=== PATIENT | male | born 1950 | race Caucasian/White ===

== ENCOUNTER 2017-01-24 10:39 | Emergency (ER) | payer OTHER ==
[~2017-01-24] VITALS: Ht 182.9 cm; Wt 96.0 kg
[~2017-01-24 10:39] MED LIST: ATEN-100 PO; CO Q100C PO; CYCL-36 PO; LISI-360 PO; NAPR250T57 PO; SIMV10TA PO; TRAM100T19 PO
[2017-01-24 10:45] VITALS: BP 135/89; PULSE 59; RESP 18; TEMP 98.2; O2SAT 94
--- NOTE | 2017-01-24 10:51 | PD ---
HPI Chief Complaint: Chest Pain Time Seen by Provider: 10:48 Travel History International Travel<30 days: No Contact w/Intl Traveler<30days: No Traveled to known affect area: No History of Present Illness HPI 66-year-old male with history of CAD status post stenting, HI, anxiety, pancreatitis, previous alcohol use, presents to the ER today brought in by EMS sent in by the [facility] because he started having chest tightness which was rated 8 out of 10 and shortness of breath at the [facility] office, was given aspirin and nitroglycerin with chest pain relief, currently having no chest pains. He denies any nausea, vomiting, or any other symptoms. He states that he has been having some problems with his pancreas, but states he has stopped taking alcohol for the last week. He states he has been fairly stressed out because his is trying to get a new job and they have a 2-year-old. Modifying Factors: None Associated Signs & Symptoms: Left-sided chest pain Risk Factors: Cardiac history PFSH Past Medical History Cardiovascular Problems: Yes Diabetes: No Diminished Hearing: No Past Surgical History Tonsillectomy: Yes Social History Alcohol Use: No Tobacco Use: No Substance Use: No Allergies-Medications (Allergen,Severity, Reaction): Coded Allergies: HMG-CoA Reductase Inhibitors (Verified Adverse Reaction, Mild, CRAMPS, ) Reported Meds & Prescriptions Reported Meds & Active Scripts Active Reported Lisinopril 10 Mg Tab 10 Mg PO DAILY Atenolol 25 Mg Tab 10 Mg PO DAILY Co Q-10 (Coenzyme Q10 (Ubidecarenone)) 100 Mg Cap 1 Mg PO DAILY Simvastatin 10 Mg Tab 1 Tab PO DAILY Naprosyn (Naproxen) 250 Mg Tab 250 Mg PO BID Flexeril (Cyclobenzaprine HCl) 10 Mg Tab 10 Mg PO BID Tramadol HCl ER (Tramadol HCl) 100 Mg Tab 50 Mg PO TID Review of Systems Except as stated in HPI: all other systems reviewed are Neg Physical Exam Narrative GENERAL: Well-developed elderly white male patient who appears mildly anxious, in moderate distress. Awake and oriented 3. SKIN: Focused skin assessment warm/diaphoretic. HEAD: Atraumatic. Normocephalic. EYES: Pupils equal and round. No scleral icterus. No injection or drainage. ENT: No nasal bleeding or discharge. Mucous membranes pink and moist. NECK: Trachea midline. No JVD. CARDIOVASCULAR: Regular rate and rhythm. No murmur appreciated. RESPIRATORY: No accessory muscle use. Clear to auscultation. Breath sounds equal bilaterally. GASTROINTESTINAL: Abdomen soft, non-tender, nondistended. Hepatic and splenic margins not palpable. MUSCULOSKELETAL: No obvious deformities. No clubbing. No cyanosis. No edema. NEUROLOGICAL: Awake and alert. No obvious cranial nerve deficits. Motor grossly within normal limits. Normal speech. PSYCHIATRIC: Appropriate mood and affect; insight and judgment normal. Data Data Last Documented VS Vital Signs Date Time Temp Pulse Resp B/P Pulse Ox O2 Delivery O2 Flow Rate FiO2 01/24/17 12:13 66 98 01/24/17 11:11 18 121/71 01/24/17 11:08 Nasal Cannula 2 01/24/17 10:45 98.2 Orders Electrocardiogram (01/24/17 10:48) Ckmb (Isoenzyme) Profile (01/24/17 10:48) Complete Blood Count With Diff (01/24/17 10:48) Comprehensive Metabolic Panel (01/24/17 10:48) Magnesium (Mg) (01/24/17 10:48) Prothrombin Time / Inr (Pt) (01/24/17 10:48) Act Partial Throm Time (Ptt) (01/24/17 10:48) Troponin I (01/24/17 10:48) Lipase (01/24/17 10:48) Chest, Single Ap (01/24/17 10:48) Ecg Monitoring (01/24/17 10:48) Bilateral Bp Monitoring (01/24/17 10:48) Iv Access Insert/Monitor (01/24/17 10:48) Oximetry (01/24/17 10:48) Oxygen Administration (01/24/17 10:48) Sodium Chloride 0.9% Flush (Ns Flush) (01/24/17 11:00) CKMB (01/24/17 11:00) CKMB% (01/24/17 11:00) Labs Laboratory Tests Test 01/24/17 11:00 White Blood Count 5.6 TH/MM3 Red Blood Count 4.39 MIL/MM3 Hemoglobin 14.1 GM/DL Hematocrit 40.2 % Mean Corpuscular Volume 91.6 FL Mean Corpuscular Hemoglobin 32.0 PG Mean Corpuscular Hemoglobin 34.9 % Concent Red Cell Distribution Width 14.9 % Platelet Count 239 TH/MM3 Mean Platelet Volume 9.4 FL Neutrophils (%) (Auto) 40.7 % Lymphocytes (%) (Auto) 34.1 % Monocytes (%) (Auto) 19.1 % Eosinophils (%) (Auto) 5.4 % Basophils (%) (Auto) 0.7 % Neutrophils # (Auto) 2.3 TH/MM3 Lymphocytes # (Auto) 1.9 TH/MM3 Monocytes # (Auto) 1.1 TH/MM3 Eosinophils # (Auto) 0.3 TH/MM3 Basophils # (Auto) 0.0 TH/MM3 CBC Comment DIFF FINAL Differential Comment Prothrombin Time 11.2 SEC Prothromb Time International 1.0 RATIO Ratio Activated Partial 29.4 SEC Thromboplast Time Sodium Level 138 MEQ/L Potassium Level 3.9 MEQ/L Chloride Level 101 MEQ/L Carbon Dioxide Level 28.8 MEQ/L Anion Gap 8 MEQ/L Blood Urea Nitrogen 22 MG/DL Creatinine 0.88 MG/DL Estimat Glomerular Filtration 87 ML/MIN Rate Random Glucose 95 MG/DL Calcium Level 9.7 MG/DL Magnesium Level 2.1 MG/DL Total Bilirubin 0.4 MG/DL Aspartate Amino Transf 47 U/L (AST/SGOT) Alanine Aminotransferase 56 U/L (ALT/SGPT) Alkaline Phosphatase 101 U/L Total Creatine Kinase 299 U/L Creatine Kinase MB 6.1 NG/ML Troponin I LESS THAN 0.02 NG/ML Total Protein 7.7 GM/DL Albumin 3.5 GM/DL Lipase 310 U/L MDM Medical Decision Making Medical Screen Exam Complete: Yes Emergency Medical Condition: Yes Medical Record Reviewed: Yes Interpretation(s) EKG shows sinus bradycardia rate of 58 bpm, no ST elevation or depression, and no arrhythmias. No significant T-wave inversions. Laboratory Tests Test 01/24/17 11:00 Red Blood Count 4.39 MIL/MM3 (4.50-5.90) Monocytes (%) (Auto) 19.1 % (0.0-8.0) Eosinophils (%) (Auto) 5.4 % (0.0-4.0) Monocytes # (Auto) 1.1 TH/MM3 (0-0.9) Blood Urea Nitrogen 22 MG/DL (7-18) Estimat Glomerular Filtration 87 ML/MIN (>89) Rate Aspartate Amino Transf 47 U/L (15-37) (AST/SGOT) Troponin I LESS THAN 0.02 NG/ML (0.02-0.05) Last 24 hours Impressions Chest X-Ray 01/24/17 1048 Signed Impressions: Service Date/Time: Tuesday, January 24, 2017 10:55 - CONCLUSION: No acute disease. Caleb Bains MD Differential Diagnosis Chest painunstable angina versus ACS versus dysrhythmias versus anxiety attack Narrative Course EKG did not show any signs of acute changes and chest x-ray is unremarkable. His cardiac enzymes did show a mildly elevated CK-MB but negative troponin. At this point, I have discussed the findings with the patient and I would consider him significant risk considering his previous heart history. I have recommended that he was admitted to the chest pain center for further evaluation of his heart. He is declining at this time stating that he has to be home in order for his to go to work and is very important that she goes to work. I have talked him about the fact that we are not able to rule out underlying coronary artery disease and risk of HI or unstable angina without further provocative testing including stress testing. Patient states understanding and at this point, is declining admission. Patient should return for any worsening in chest pains or further issues as needed. He will be leaving AGAINST MEDICAL ADVICE. AMA: The risks of leaving against medical advice without further evaluation treatment were discussed with the patient. These risks include cardiac dysfunction, cardiac dysrhythmia, possible heart attack, possible stroke or . The patient indicated understanding of these risks and appeared to have the capacity to make this decision. Diagnosis Primary Impression: Chest pain Disposition: 07 AGAINST MEDICAL ADVICE Condition: Stable Triny Brannon MD January 24, 2017 10:51
[2017-01-24] MEDS ORDERED: SODIUM CHLORIDE 0.9% FLUSH 10 ML FLUSH IVF PRN (11:00)
[2017-01-24 11:08] VITALS: PULSE 58; RESP 16
[2017-01-24 11:11] VITALS: BP 121/71; PULSE 56; RESP 18
[2017-01-24 11:19] LABS: AUTOMATED NEUTROPHIL # 2.3 TH/MM3 (1.8-7.7); BASOPHIL % 0.7 % (0.0-2.0); EOSINOPHIL # 0.3 TH/MM3 (0-0.4); EOSINOPHIL % 5.4 % (0.0-4.0); HEMATOCRIT 40.2 % (39.0-51.0); HEMO FLAGS DIFF FINAL; LYMPH % 34.1 % (9.0-44.0); LYMPHOCYTE # 1.9 TH/MM3 (1.0-4.8); MEAN CELL VOLUME 91.6 FL (80.0-100.0); MEAN CORPUSCULAR HGB CONC 34.9 % (32.0-36.0); MONO % 19.1 % (0.0-8.0); NEUT % 40.7 % (16.0-70.0); PLATELET COUNT 239 TH/MM3 (150-450); RED BLOOD COUNT 4.39 MIL/MM3 (4.50-5.90); RED CELL DISTRIBUTION WIDTH 14.9 % (11.6-17.2); WHITE BLOOD COUNT 5.6 TH/MM3 (4.0-11.0)
[2017-01-24 11:28] LABS: APTT (PATIENT) 29.4 SEC (24.3-30.1); PROTHROMBIN TIME - PATIENT 11.2 SEC (9.8-11.6)
--- NOTE | 2017-01-24 11:30 | RADRPT ---
EXAM DATE/TIME: 01/24/2017 10:55 [facility] COMPARISON: No previous studies available for comparison. INDICATIONS : Short of breath. Evaluate lung status. MEDICAL HISTORY : None. SURGICAL HISTORY : Stent ENCOUNTER: Initial ACUITY: 4 - 6 months PAIN SCORE: 0/10 LOCATION: Bilateral chest FINDINGS: A single view of the chest demonstrates the lungs to be symmetrically aerated without evidence of mas s, infiltrate or effusion. The cardiomediastinal contours are unremarkable. Osseous structures are intact. CONCLUSION: No acute disease. Caleb Bains MD on January 24, 2017 at 11:27 Board Certified Radiologist. This report was verified electronically.
[2017-01-24 11:34] LABS: ALT (GPT) 56 U/L (12-78); ANION GAP 8 MEQ/L (5-15); AST (GOT) 47 U/L (15-37); BICARBONATE 28.8 MEQ/L (21.0-32.0); BLOOD UREA NITROGEN 22 MG/DL (7-18); CHLORIDE 101 MEQ/L (98-107); GLOMERULAR FILTRATION RATE 87 ML/MIN (>89); MAGNESIUM 2.1 MG/DL (1.5-2.5); POTASSIUM 3.9 MEQ/L (3.5-5.1); SODIUM (NA) 138 MEQ/L (136-145)
[2017-01-24 11:38] LABS: ALKALINE PHOSPHATASE 101 U/L (45-117); CREATINE KINASE 299 U/L (39-308); TOTAL BILIRUBIN ADULT 0.4 MG/DL (0.2-1.0)
[2017-01-24 11:50] LABS: CKMB 6.1 NG/ML (0.5-3.6)
--- NOTE | 2017-01-24 19:17 | EKG ---
Date Performed: 01/24/2017 Time Performed: 10:52:09 PTAGE: 66 years EKG: SINUS BRADYCARDIA MARKED LEFT AXIS DEVIATION PATTERN CONSISTENT WITH PULMONARY DISEASE VOLT AGE CRITERIA FOR LVH ABNORMAL ECG NO PREVIOUS TRACING DOCTOR: Bello Zimmer Interpretating Date/Time 01/24/2017 19:16:16
== END 2017-01-24 12:15 | disposition left against medical advice (07) ==
LOC: NEPE 10:39
DX: R07.89 Other chest pain (principal); R94.31 Abnormal electrocardiogram [ECG] [EKG]; I25.2 Old myocardial infarction; Z86.79 Personal history of other diseases of the circulatory system; Z86.59 Personal history of other mental and behavioral disorders; Z87.19 Personal history of other diseases of the digestive system; Z53.29 Procedure and treatment not carried out because of patient's decision for other reasons
CPT/HCPCS: 71010; 80053; 82550; 82552; 83690; 83735; 84484; 85025; 85610; 85730; 93005; 99285